=== PATIENT | male | born 1965 | race Caucasian/White ===

== ENCOUNTER 2018-08-15 10:59 | Emergency (ER) | payer MEDICAID ==
[2018-08-15 11:22] VITALS: BMI 26.6
[2018-08-15 11:24] VITALS: RESP 18; TEMP 99
--- NOTE | 2018-08-15 12:00 | C.PDOC ---
History Of Present Illness 53 y/o male,w/PMhx of HTN and anemia, presents to the ER complaining of having bleeding from hemorrhoids which has been present for the past 2 weeks. Patient states that he was evaluated for the same symptoms yesterday and he was dis charged with a prescription for cream. However, patient reports that he continues to have persistent rectal discomfort Denies having nausea, vomiting, and diarrhea. Time Seen by Provider: 08/15/18 11:32 Chief Complaint (Nursing): Abdominal Pain History Per: Patient History/Exam Limitations: no limitations Onset/Duration Of Symptoms: Days Current Symptoms Are (Timing): Still Present Past Medical History Reviewed: Historical Data, Nursing Documentation, Vital Signs Vital Signs: Last Vital Signs Temp 99 F 08/15/18 11:21 Pulse 100 H 08/15/18 11:21 Resp 18 08/15/18 11:21 BP 150/89 08/15/18 11:21 Pulse Ox 99 08/15/18 11:21 - Medical History PMH: HTN Surgical History: Appendectomy Family History: States: No Known Family Hx - Social History Hx Alcohol Use: No Hx Substance Use: No - Immunization History Hx Tetanus Toxoid Vaccination: No Hx Influenza Vaccination: Yes Hx Pneumococcal Vaccination: No Review Of Systems Except As Marked, All Systems Reviewed And Found Negative. Constitutional: Negative for: Fever, Chills Gastrointestinal: Positive for: Rectal Pain, Other (bleeding from hemorrhoids). Negative for: Nausea, Vomiting, Diarrhea Physical Exam - Physical Exam Appears: Non-toxic, No Acute Distress Skin: Normal Color, Warm, Dry Head: Atraumatic, Normacephalic Eye(s): bilateral: Normal Inspection Nose: Normal Oral Mucosa: Moist Neck: Supple Chest: Symmetrical Cardiovascular: Rhythm Regular Respiratory: Normal Breath Sounds, No Rales, No Rhonchi, No Wheezing Gastrointestinal/Abdominal: Soft, No Tenderness, No Guarding, No Rebound Rectal: Hemorrhoids (multiple hemorrhoids, no bleeding, no thrombosis) Neurological/Psych: Oriented x3, Normal Speech ED Course And Treatment - Laboratory Results Result Diagrams: 08/15/18 12:12 08/15/18 13:07 O2 Sat by Pulse Oximetry: 99 (RA) Pulse Ox Interpretation: Normal Medical Decision Making Medical Decision Making: Plan: --Labs pt with large hemorrhoids, none of which appear thromboses at this time. pt advised otc stool softener, supportive tx, outpt fu, h/h stable. Disposition - Disposition Referrals: Trace Peterson MD [Staff Provider] - Disposition: HOME/ ROUTINE Disposition Time: 13:00 Condition: STABLE Prescriptions: Hydrocortisone 2.5% (Rectal) [Anusol-HC] 1 applic LA BID #1 tube Instructions: Hemorrhoids Forms: [facility] (Kiswahili) - Clinical Impression Clinical Impression: Acute hemorrhoid - Scribe Statement The provider has reviewed the documentation as recorded by the Les Sneed Provider Attestation: All medical record entries made by the Dalyibroe were at my direction and personally dictated by me. I have reviewed the chart and agree that the record accurately reflects my personal performance of the history, physical exam, medical decision making, and the department course for this patient. I have also personally directed, reviewed, and agree with the discharge instructions and disposition.
[2018-08-15 12:15] LABS: BASO % 0.6 % (0.0-2.0); EOS # 0.2 K/uL (0.0-0.7); EOS % 3.2 % (0.0-4.0); HEMOGLOBIN 16.2 g/dL (12.0-18.0); LYMPH # 1.5 K/uL (1.0-4.3); LYMPH % 26.9 % (20.0-40.0); MEAN CELL VOLUME 87.2 fL (80.0-94.0); MEAN CORPUSCULAR HEMOGLOBIN 28.6 pg (27.0-31.0); MEAN CORPUSCULAR HGB CONC 32.8 g/dL (33.0-37.0); MEAN PLATELET VOLUME 8.8 fL (7.2-11.7); MONO # 0.5 K/uL (0.0-0.8); MONO % 8.1 % (0.0-10.0); NEUT # 3.4 K/uL (1.8-7.0); NEUT % 61.2 % (50.0-75.0); RBC 5.66 Mil/uL (4.40-5.90); RED CELL DISTRIBUTION WIDTH 14.2 % (11.5-14.5); WHITE BLOOD COUNT 5.6 K/uL (4.8-10.8)
[2018-08-15 13:19] LABS: INR 1.1; PROTHROMBIN TIME 12.5 SECONDS (9.7-12.2)
[2018-08-15 13:23] LABS: ALB/GLOB RATIO 1.3 (1.0-2.1); ALBUMIN 4.7 g/dL (3.5-5.0); BLOOD UREA NITROGEN 14 mg/dL (9-20); CALCIUM 9.7 mg/dl (8.6-10.4); GFR NON-AFRICAN AMERICAN 57
[2018-08-15 13:25] LABS: ALT/SGPT 21 U/L (21-72); AST/SGOT 24 U/L (17-59)
[2018-08-15 13:43] VITALS: BP 136/74; PULSE 82
[2018-08-15 15:45] VITALS: O2SAT 99
== END 2018-08-15 13:45 | disposition home or self-care (01) ==
LOC: C.ER 10:59
DX: K64.9 Unspecified hemorrhoids (principal)